=== PATIENT | female | born 1980 | race African-American/Black ===

== ENCOUNTER → 2024-11-21 | Outpatient (CLI) | payer BC | END | disposition home or self-care (01) | LOC: US 12:39 | PROVIDERS: ATTEND Obstetrics & Gynecology | DX: D25.1 Intramural leiomyoma of uterus (principal); D25.2 Subserosal leiomyoma of uterus; N83.201 Unspecified ovarian cyst, right side; D16.20 Benign neoplasm of long bones of unspecified lower limb; N92.6 Irregular menstruation, unspecified | CPT/HCPCS: 76830; 76856 ==

== ENCOUNTER → 2025-04-24 | Outpatient (CLI) | payer BC ==
[2025-04-24 11:54] LABS: BASOPHILS % 0.5 % (0.0-2.0); EOSINOPHILS % 2.2 % (0.0-5.0); HEMATOCRIT. 38.4 % (36.0-48.0); HEMOGLOBIN. 12.6 g/dL (12.0-16.0); LYMPHOCYTES % 35.4 % (20.0-50.0); MEAN PLATELET VOLUME 9.0 fl (7.4-10.4); MONOCYTES % 11.6 % (2.0-8.0); NEUTROPHILS % 50.3 % (40.0-76.0); PLATELET 274 x1000/uL (130-400); RED BLOOD CELL COUNT 4.16 mill/uL (4.2-5.4); RED CELL DISTRIBUTION WIDTH 12.2 % (11.6-14.6)
[2025-04-24 12:05] LABS: CREATININE 0.9 mg/dL (0.6-1.0); TRIGLYCERIDE 68 mg/dL (0-150); UREA NITROGEN BLOOD 10 mg/dL (9-23)
[2025-04-24 12:06] LABS: ASPARTATE AMINOTRANSFERASE 22 IU/L (<34); LDL CHOLESTEROL 128 mg/dL (5-100)
[2025-04-24 12:07] LABS: BILIRUBIN TOTAL 0.8 mg/dL (0.1-1.0); PROTEIN TOTAL 7.7 g/dL (6.0-8.3)
[2025-04-24 12:09] LABS: T4 FREE 1.19 ng/dL (0.89-1.76)
[2025-04-24 12:13] LABS: VITAMIN B12 SERUM 769 pg/mL (211-911)
[2025-04-24 13:14] LABS: CLARITY URINE CLEAR (CLEAR); COLOR URINE YELLOW (YELLOW); GLUCOSE URINE NEGATIVE (NEGATIVE); KETONES URINE TRACE (NEGATIVE); LEUKOCYTE ESTERASE URINE NEGATIVE (NEGATIVE); NITRITE URINE NEGATIVE (NEGATIVE); OCCULT BLOOD URINE NEGATIVE (NEGATIVE); PH URINE 5.5 (4.5-8.0); PROTEIN URINE NEGATIVE (NEGATIVE); SPECIFIC GRAVITY URINE 1.025 (1.005-1.030); UROBILINOGEN URINE 0.2 E.U./dL (0.2-1.0)
[2025-04-25 06:12] LABS: VITAMIN D 25-OH 37.4 ng/mL (30.0-100.0)
[2025-04-25 08:11] LABS: FOLICLE STIMULATING HORMONE 2.1 mIU/mL (.); LUTEINIZING HORMONE 9.6 mIU/mL (.)
== END | disposition home or self-care (01) ==
LOC: RAD 10:35
PROVIDERS: ATTEND Family Medicine Adult Medicine
DX: M47.816 Spondylosis without myelopathy or radiculopathy, lumbar region (principal); M47.812 Spondylosis without myelopathy or radiculopathy, cervical region; M51.360 Other intervertebral disc degeneration, lumbar region with discogenic back pain only; M50.323 Other cervical disc degeneration at C6-C7 level; M48.02 Spinal stenosis, cervical region; M25.78 Osteophyte, vertebrae; M53.86 Other specified dorsopathies, lumbar region; G62.9 Polyneuropathy, unspecified; R53.83 Other fatigue; G60.9 Hereditary and idiopathic neuropathy, unspecified; Z00.01 Encounter for general adult medical examination with abnormal findings
CPT/HCPCS: 36415; 71046; 72050; 72110; 80053; 80061; 81003; 82306; 82607; 83001; 83002; 84439; 84443; 85025